=== PATIENT | male | born 1950 | race Caucasian/White ===

== ENCOUNTER 2016-08-01 12:45 | Emergency (ER) | payer MEDICARE, BC ==
[2016-08-01 13:15] LABS: Hematocrit 43 % (42-52); Hemoglobin 14.3 g/dl (14.0-18.0); Mean Corpuscular HGB Conc 34 g/dl (31-36); Mean Corpuscular Hemoglobin 30 pg (27-31); Mean Corpuscular Volume 88 fL (80-94); Mean Platelet Volume 8 um3 (7.4-10.4); Red Blood Count 4.82 10^6/ul (4.0-5.4); Red Cell Distribution Width 13 % (10.5-15); White Blood Count 6.2 10^3/ul (3.5-10.8)
[2016-08-01 13:17] LABS: Urine Bilirubin Negative (Negative); Urine Glucose Negative (Negative); Urine Nitrite Negative (Negative)
[2016-08-01 13:27] LABS: Albumin 4.2 g/dL (3.2-5.2); BUN/Creatinine Ratio 14.5 (8-20); Calcium 9.4 mg/dL (8.6-10.3); EGFR African American 80.5 (>60); EGFR Non-African American 62.6 (>60); Globulin 2.9 g/dL (2-4); HDL Cholesterol 54.8 mg/dL; Potassium 3.9 mmol/L (3.5-5.0); Total Bilirubin 0.4 mg/dL (0.2-1.0); Total Protein 7.1 g/dL (6.4-8.9)
[2016-08-01 13:31] LABS: Benzodiazepine Urine Screen None Detected (None Detect)
--- NOTE | 2016-08-01 13:50 | RAD ---
INDICATION: Speech aphasia. COMPARISON: There are no prior studies available for comparison. TECHNIQUE: Contiguous axial sections of the brain were obtained from the skull base to the vertex without contrast. FINDINGS: The ventricles, cisterns and sulci are within normal limits. No significant focal abnormality or mass effect is seen. There is no evidence for hemorrhage. No significant focal osseous abnormality is seen. The visualized portion of the paranasal sinuses and mastoid air cells appear clear. IMPRESSION: NO EVIDENCE FOR GROSS ACUTE INFARCT, MASS EFFECT OR HEMORRHAGE.
[2016-08-01 15:54] VITALS: BP 125/58
--- NOTE | 2016-08-01 16:15 | ED ---
Hakeem Pace Billy, scribed for Aaron Whitten MD on 08/01/16 at 1307 . Altered Mental Status - HPI Summary HPI Summary: Patient is a 65 year-old male coming to [facility] presenting with an episode of confusion and "amnesia" earlier today at approximately 1230. The episode, witnessed by the patient's , lasted approximately 30-45 minutes and gradually resolved spontaneously. At this time in the ED, patient remembers having the episode of confusion, but does not recall some portions of the conversation he had with his at that time. He states that he had been exercising in the gym earlier that morning and had increased difficulty with some particular exercises, and also reported a sense of "austin vu." Denies any similar previous episodes or recent head trauma. Patient has a history of migraine headaches. - History Of Current Complaint Chief Complaint: EDAltMentalStatus Stated Complaint: AMS NOW RESOLVED Time Seen by Provider: 08/01/16 12:55 Hx Obtained From: Patient Onset/Duration: Resolved, Gradually Timing: Constant Severity Initially: Moderate Severity Currently: Moderate Character: Confusion Aggravating Factor(s): Nothing Alleviating Factor(s): Nothing Associated Signs And Symptoms: Positive: Negative - Allergies/Home Medications Allergies/Adverse Reactions: Allergies Allergy/AdvReac Type Severity Reaction Status Date / Time No Known Allergies Allergy Verified 08/01/16 12:47 Home Medications: Home Medications NK [No Home Medications Reported] 08/01/16 [History Confirmed 08/01/16] PMH/Surg Hx/FS Hx/Imm Hx Endocrine/Hematology History: Reports: Other Endocrine/Hematological Disorders - B12 deficiency Cardiovascular History: Denies: Hx Hypertension Neurological History: Reports: Hx Migraine - Surgical History Surgery Procedure, Year, and Place: vasectomy Infectious Disease History: No Infectious Disease History: Denies: Traveled Outside the [place] in Last 30 Days - Family History Family History: Mother with TIA and Alzheimer's. - Social History Alcohol Use: Occasionally Substance Use Type: Reports: None Smoking Status (MU): Never Smoked Tobacco Review of Systems Negative: Fever Neurological: Other - confusion All Other Systems Reviewed And Are Negative: Yes Physical Exam - Summary Physical Exam Summary: VITAL SIGNS: Reviewed. GENERAL: Patient is a well developed and nourished male who is lying comfortable in the stretcher. Patient is not in any acute respiratory distress. HEAD AND FACE: Normocephalic and atraumatic. EYES: PERRLA, EOMI x 2, No injected conjunctiva. EARS: Hearing grossly intact. Ear canals and tympanic membranes are WNL. MOUTH: Oropharynx within normal limits. NECK: Supple, trachea is midline, no adenopathy, no JVD. CHEST: Symmetric, no tenderness at palpation LUNGS: Clear to auscultation bilaterally. No wheezing or crackles. CVS: RRR,, S1 and S2 present, no murmurs or gallops appreciated. ABDOMEN: Soft, non-tender. No signs of distention. Positive bowel sounds. No rebound no guarding, and no masses palpated. No abdominal bruit or pulsations. EXTREMITIES: FROM in all major joints, no edema, no cyanosis or clubbing. NEURO: Alert and oriented x 3. No acute neurological deficits. Speech is normal. NIH score is 0 SKIN: Dry and warm Triage Information Reviewed: Yes Vital Signs On Initial Exam: Initial Vitals Temp Pulse Resp BP Pulse Ox 98.2 F 78 18 123/77 100 08/01/16 12:46 08/01/16 12:46 08/01/16 12:46 08/01/16 12:46 08/01/16 12:46 Vital Signs Reviewed: Yes Diagnostics - Vital Signs Vital Signs Temp Pulse Resp BP Pulse Ox 08/01/16 12:46 98.2 F 78 18 123/77 100 - Laboratory Lab Results: Lab Results 08/01/16 08/01/16 08/01/16 Range/Units 13:00 13:00 13:00 WBC 6.2 (3.5-10.8) 10^3/ul RBC 4.82 (4.0-5.4) 10^6/ul Hgb 14.3 (14.0-18.0) g/dl Hct 43 (42-52) % MCV 88 (80-94) fL MCH 30 (27-31) pg MCHC 34 (31-36) g/dl RDW 13 (10.5-15) % Plt Count 225 (150-450) 10^3/ul MPV 8 (7.4-10.4) um3 Neut % (Auto) 47.6 (38-83) % Lymph % (Auto) 38.1 (25-47) % [place] % (Auto) 8.8 (1-9) % Eos % (Auto) 3.4 (0-6) % Baso % (Auto) 2.1 H (0-2) % Absolute Neuts (auto) 2.9 (1.5-7.7) 10^3/ul Absolute Lymphs (auto) 2.3 (1.0-4.8) 10^3/ul Absolute Monos (auto) 0.5 (0-0.8) 10^3/ul Absolute Eos (auto) 0.2 (0-0.6) 10^3/ul Absolute Basos (auto) 0.1 (0-0.2) 10^3/ul Absolute Nucleated RBC 0 10^3/ul Nucleated RBC % 0 INR (Anticoag Therapy) 0.89 (0.89-1.11) Urine Color Yellow Urine Appearance Clear Urine pH 5.0 (5-9) Ur Specific [place] 1.021 (1.010-1.030) Urine Protein Negative (Negative) Urine Ketones Trace H (Negative) Urine Blood Negative (Negative) Urine Nitrate Negative (Negative) Urine Bilirubin Negative (Negative) Urine Urobilinogen Negative (Negative) Ur Leukocyte Esterase Negative (Negative) Urine Glucose Negative (Negative) Urine Ascorbic Acid * H (Negative) Result Diagrams: 08/01/16 13:00 08/01/16 13:00 Lab Statement: Any lab studies that have been ordered have been reviewed, and results considered in the medical decision making process. 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: Both Correctly Best Gaze (Only Horizontal Eye Movement): Normal Visual Field Testing: No Visual Loss Facial Paresis-Pt to Smile & Close Eyes or Grimace Symmetry: Normal/Symmetrical Motor Function - Right Arm: No Drift-Holds 10 Seconds Motor Function - Left Arm: No Drift-Holds 10 Seconds Motor Function - Right Leg: No Drift-Holds 10 Seconds Motor Function - Left Leg: No Drift-Holds 10 Seconds Limb Ataxia-Must be out of Proportion to Weakness Present: Absent Sensory (Use Pinprick to Test Arms/Legs/Trunk/Face): Normal Best Language (Describe Picture, Name Items): No Aphasia Dysarthria (Read Several Words): Normal Extinction and Inattention: No Abnormality Total Score: 0 Re-Evaluation - Re-Evaluation First Eval Re-Evaluation Time: 15:41 Change: Unchanged Comment: Patient remains asymptomatic at this time. Plan for discharge and outpatient follow up reviewed. Altered Mental Statu Course/Dx - Course Assessment/Plan: Patient is a 65 year-old male coming to [facility] presenting with an episode of confusion and "amnesia" earlier today at approximately 1230. The episode, witnessed by the patient's , lasted approximately 30-45 minutes and gradually resolved spontaneously. At this time in the ED, patient remembers having the episode of confusion, but does not recall some portions of the conversation he had with his at that time. He states that he had been exercising in the gym earlier that morning and had increased difficulty with some particular exercises, and also reported a sense of "austin vu." Denies any similar previous episodes or recent head trauma. Patient has a history of migraine headaches. Bloodwork WNL except for glucose of 105. UA is negative. CT brain shows no acute intracranial pathology. The patient continues to be neurologically intact. I do believe that the patient had transient global amnesia. I discussed the case with Dr. Mclaughlin. He came and examined the patient and agrees with the plan to hvae the patient discharged to follow up with PCP, and for outpatient EEG. I discussed the case with Dr. Masters and she agrees for the patient to follow up with her and to send the patient for outpatient EEG. A&Ox3 without focal neurological deficits. I discussed all the findings and test results with the patient. Patient was instructed to return to the emergency room immediately if any of the symptoms return or worsens. Patient understands and agrees. Plan of care was discussed with the patient and patient understands and agrees with the plan of care. All questions were answered at patient satisfaction. There were no further complaints or concerns. Patient is alert and oriented x 3. Patient vital signs are stable. Patient is to follow up with primary care physician in the next 2 to 3 days. Patient understands and agrees. - Diagnoses Differential Diagnosis/HQI/PQRI: CVA, Hypoglycemia, Hypoxia, Intracranial Bleed , Medication Reaction, Seizure, TIA Discharge Diagnoses: Transient global amnesia - Provider Notifications Discussed Care Of Patient With: Dr. Mclaughlin (neurology) @ 0248: will see patient in the ED. Dr. Masters (PCP) @ 0649: recommends plan for discharge. Discharge - Discharge Plan Condition: Stable Disposition: HOME Patient Education Materials: Transient Global Amnesia (ED) Referrals: Mercedes Carreno MD [Primary Care Provider] - The documentation as recorded by the Hakeem salgado Billy accurately reflects the service I personally performed and the decisions made by me, Aaron Whitten MD.
--- NOTE | 2016-08-01 16:17 | CONSULT ---
Consult Consult: 08/01/16 neurology consult 65 yo RHM p/w an episode of memory loss. He is currently able to recall his activities of yesterday (eg dinner with friends, who was present) and this am ( had breakfast, went to work out around noon with ). After returning from their workout, his went upstairs to change, and when she came down about 10 minutes later, she found him seated and staring. He then could not recall their workout or other recent discussions (eg upcoming travel plans they had discussed in past few days), and perseverated on we worked out? and on using a specific machine or exercise. His retrograde memory issues have improved and he recalls the am, workout, driving home, and his time in the ED, but not the period in between. He had no convulsions, trauma, incontinence, automatisms or focal findings, nor headache. Allergies/Meds - per jul; B12 po PMH - B12 deficiency, migraines (when younger); no surg FH - mother of dementia, had ? TIAs; F of CHF complications SH - no etoh or tob or drugs; retired IT; retired physician; moving soon to [place] ROS - 10 point review as per hpi, otherwise negative Vitals per emr general Examination: no apparent distress, no edema, male of stated age Neurologic Examination Mental Status: alert and fully oriented; affect reactive, no clear neglect, fluent speech Cranial Nerves: Funduscopy with sharp discs; II-XII intact Motor: normal bulk and tone; no drift or tremor; power 5/5 Sensory: vibration and touch are intact Reflexes: 2 throughout. Plantar responses are flexor Coordination: finger to nose intact Gait: deferred Serologies: CBC, chem, coags, LFTs, ua, uds are all normal or negative Priors; aic, PSA, TSH, SPEP, HCV were all fine; B12 was 221 in 2914, 298 in 09/11 , then 600s on repeat late 2014, normal MMA in 2013 Imaging: Head CT reviewed and negative Impression: 65 year old with supplemented B12 insufficiency, presenting with TGA (transient global amnesia). His neuro exam and [employer] imaging are non localizing. We discussed the unclear pathophys vs benign and generally monophasic course of this entity, period of irretrievable anterograde vs improving/resolving retrograde amnesia (usually covering a period of hours-few days), and typically normal workup for mimics, ie a diagnosis of exclusion. He should complete the workup with an outpatient EEG; if normal, no restrictions or further workup is likely needed. From a neuro standpoint, he can be discharged home.
== END 2016-08-01 15:55 | disposition home or self-care (01) ==
LOC: ED 12:45
DX: G45.4 Transient global amnesia (principal)
CPT/HCPCS: 36415; 70450; 80053; 80061; 80307; 81003; 83605; 84484; 85025; 85610; 93005